=== PATIENT | female | born 1970 | race African-American/Black ===

== ENCOUNTER 2025-05-02 07:49 | Emergency (ER) | payer OTHER, SELFPAY ==
--- NOTE | ~2025-05-02 | CT_ITS ---
EXAMINATION: CT brain wo con DATE: 05/02/2025 12:57 INDICATION: Confusion TECHNIQUE: Computed tomography (CT) of the head was performed without intravenous contrast. Sagittal and coronal reconstructions were performed. The mA was adjusted according to patient size. Iterative reconstruction technique was employed. The dose-length product was 529.67 mGy-cm. COMPARISON: None FINDINGS: No fracture. No acute intracranial hemorrhage, acute infarction or abnormal extra axial fluid collection. Ventricles are normal and symmetric. No mass/mass effect. The orbits, paranasal sinuses and mastoid air cells are normal. IMPRESSION: 1. Normal head CT. Reviewed, dictated and finalized at location A. LEDGE MANAGER IMPRESSION: 1. Normal head CT.
--- NOTE | ~2025-05-02 | XR_ITS ---
Examination: XR hand LT min 3V, XR knee RT 3V, XR knee LT 3V, XR wrist LT min 3V Clinical History: trauma Comparison: None Technique: 3 views left wrist, 3 views left hand, 3 views left knee, 3 views right knee Findings/impression: Left wrist: 1. No fracture or dislocation left wrist. Left hand: 1. Probable degenerative osteophyte rather than avulsion fracture first finger MCP joint. 2. Otherwise no acute abnormality left hand. Left knee: 1. No fracture, dislocation, or effusion left knee. 2. Severe medial compartment joint space narrowing with mild associated marginal osteophytes. Right knee: 1. No fracture, dislocation, or effusion right knee. 2. Mild medial and lateral compartment joint space narrowing, with mild medial compartment marginal osteophytes. 3. Lucent focus proximal tibia with benign features. Reviewed, dictated and finalized at location R. P FEEDER
--- NOTE | ~2025-05-02 | XR_ITS ---
EXAMINATION: XR chest 2V DATE: 05/02/2025 13:09 INDICATION: Trauma TECHNIQUE: PA and lateral views of the chest were obtained. COMPARISON: None FINDINGS: The lungs are clear with no focal airspace opacities, pulmonary edema, pleural effusion or pneumothorax. The cardiomediastinal silhouette is normal. Mild to moderate thoracic spondylosis. IMPRESSION: 1. No acute cardiopulmonary disease. Reviewed, dictated and finalized at location A. 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
[2025-05-02 07:51] VITALS: BP 147/85; PULSE 79; RESP 16; TEMP 36.7; O2SAT 100
--- OUTSIDE RECORDS SUMMARY | 2025-05-02 11:49 | XMS_ITS | Clinical Summary ---
Author Organization [facility] Address [address] [place] [address] Care Team Providers Care Manager Commercial Sales Name Role Phone Johanny Wu MD Primary Care Provider [phone] Allergies Active Allergy Reactions Criticality Noted Date Comments Hydrocodone-Acetaminophen Palpitations,Sweating Low 12/10/2018 Medications tirzepatide (Mounjaro) 10 mg/0.5 mL pen injector injection Inject 0.5 mL (10 mg total) under the skin every 7 days 2 mL 6 12/07/2024 Active atenoloL (TENORMIN) 50 mg tablet TAKE 2 TABLETS BY MOUTH EVERY DAY 200 tablet 1 02/11/2025 Active amLODIPine (NORVASC) 10 mg tablet TAKE 1 TABLET BY MOUTH EVERY DAY 100 tablet 1 02/11/2025 Active hydroCHLOROthia zide (HYDRODIURIL) 25 mg tablet TAKE 1 TABLET (25 MG TOTAL) BY MOUTH DAILY. 100 tablet 1 02/11/2025 Active rosuvastatin (CRESTOR) 10 mg tablet Take 1 tablet (10 mg total) by mouth daily 30 tablet 11 04/18/2025 6 Active Active Problems Problem Noted Date Diagnosed Date Class 2 obesity due to exces s calories without serious comorbidity with body mass index (BMI) of 38.0 to 38.9 in adult 12/18/2024 Assessment & Plan (04/17/2025 2:00 PM APPLICATION SUPPORT CONSULTANT): Patient to decrease intake and increase activity Assessment & Plan (12/18/2024 8:52 AM CDT): Patient to decrease intake and increase activity Type 2 diabetes mellitus without complication Assessment & Plan (09/18/2024 7:12 AM CDT): Continue Mounjaro 7.5mg once a week Assessment & Plan (06/05/2024 8:03 AM APPLICATION SUPPORT CONSULTANT): Continue Mounjaro 2.5mg once a week Environmental and seasonal allergies 01/30/2024 Assessment & Plan (06/05/2024 8:05 AM APPLICATION SUPPORT CONSULTANT): Continue OTC Claritin as needed Assessment & Plan (01/30/2024 11:07 PM CDT): Continue to use OTC Claritin as needed Chronic left shoulder pain 01/30/2024 Assessment & Plan (01/30/2024 11:21 PM CDT): Will obtain X-ray of shoulder SOB (shortness of breath) 10/25/2023 Assessment & Plan (10/25/2023 7:32 PM CDT): Will check labs Well woman exam 12/15/2022 Overview (12/15/2022): Lab: Pap:all normal No recent labs. Libra:due in March Colonoscopy:she has the cologuard at her house BMD: Gardasil:did not 44 Assessment & Plan (05/25/2023 9:48 AM APPLICATION SUPPORT CONSULTANT): Due 12/2023 Assessment & Plan (12/15/2022 3:05 PM CDT): Pap done. RTO 12m. I will send the results to the portal. If she has not heard in a week, to call the office. Postmenopausal bleeding 12/15/2022 Assessment & Plan (06/05/2024 8:04 AM APPLICATION SUPPORT CONSULTANT): Patient to follow up with WIRE PHOTO OPERATOR Assessment & Plan (01/30/2024 10:57 PM CDT): Will have patient to follow up with WIRE PHOTO OPERATOR Assessment & Plan (10/25/2023 7:31 PM CDT): Follow up with WIRE PHOTO OPERATOR Assessment & Plan (05/25/2023 9:51 AM APPLICATION SUPPORT CONSULTANT): Options reviewed She will continue on the provera q 3m. If she continues to spot outside of the correct window, may need to do D&c or myosure. Assessment & Plan (02/22/2023 11:37 AM CDT): Options discussed She wants to do everything possible to avoid surgery. Will cycle her with provera at least q 3m. Use and side effects reviewed. She understands that we are doing this to try to prevent endometrial cancer, but since I can not get a sample, I dont know what is up there now. Assessment & Plan (12/15/2022 5:28 PM CDT): To usg We dicussed that she most likely will need an emb Procedure reviewed To take ibu prior. She voices understanding. Acute cough 03/02/2022 Assessment & Plan (03/02/2022 8:35 PM CDT): Patient to use OTC Mucinex as needed Morbid obesity with BMI of 40.0-44.9, adult 05/12 Assessment & Plan (09/18/2024 7:15 AM CDT): Patient to decrease intake and increase activity. Patient to continue Mounjaro 7.5mg once a week. Patient to continue Mounjaro 7.5mg once a week. Assessment & Plan (01/30/2024 10:55 PM CDT): Decrease intake and increase activity. Will have patient to see weight management Assessment & Plan (10/25/2023 7:29 PM CDT): Decrease intake and increase activity Assessment & Plan (05/16/2023 11:20 AM APPLICATION SUPPORT CONSULTANT): Decrease intake and increase activity Assessment & Plan (01/08/2023 9:15 PM CDT): Decrease intake and increase activity Assessment & Plan (08/27/2022 9:46 PM CDT): Decrease intake and increase activity Assessment & Plan (03/02/2022 8:36 PM CDT): Decrease intake and increase activity Assessment & Plan (10/06/2021 8:52 PM CDT): Decrease intake and increase activity Assessment & Plan (06/01/2021 3:09 PM APPLICATION SUPPORT CONSULTANT): Decrease intake and increase activity Acute medial meniscus tear of right knee 021 Primary osteoarthritis of right knee 09/25/2020 Assessment & Plan (10/25/2023 7:34 PM CDT): Recommend for patient to continue home exercises. Hypersomnia with sleep apnea 02/06/2020 Encounter for screening colonoscopy 02/21/2019 Overview (02/21/2019): Added automatically from request for surgery [id number] Essential hypertension 02/11/2019 Assessment & Plan (09/18/2024 7:10 AM CDT): Patient to continue Amlodipine 10mg a day, HCTZ 25mg one tablet a dayy and Atenolol 50mg one tablet a day Assessment & Plan (06/05/2024 8:00 AM APPLICATION SUPPORT CONSULTANT): Continue Amlodipine 10mg a day, HCTZ 25mg one tablet a dayy and Atenolol 50mg one tablet a day Assessment & Plan (01/30/2024 10:51 PM CDT): Continue Amlodipine 10mg a day, HCTZ 25mg one tablet a dayy and Atenolol 50mg one tablet a day Assessment & Plan (10/25/2023 7:27 PM CDT): Continue Amlodipine 10mg a day, HCTZ 25mg a day and Atenolol 50mg once a day Assessment & Plan (05/16/2023 11:22 AM APPLICATION SUPPORT CONSULTANT): Continue Amlodipine 10mg a day and Atenolol 50mg a day Assessment & Plan (01/08/2023 9:17 PM CDT): Continue HCTZ 25mg a day, Atenolol 50mg a day and Amlodipine 10mg a day Assessment & Plan (08/27/2022 9:48 PM CDT): Continue HCTZ 25mg a day and Amlodipine 10mg a day Assessment & Plan (03/02/2022 8:31 PM CDT): Continue HCTZ 25mg a day and Atenolol 50mg a day Assessment & Plan (10/06/2021 8:56 PM CDT): Continue Amlodipine 10mg a day and Atenolol 50mg a day Assessment & Plan (06/01/2021 3:13 PM APPLICATION SUPPORT CONSULTANT): Continue Amlodipine 5mg a day, Atenolol 50mg a day and HCTZ 25mg a day Assessment & Plan (06/14/2020 4:19 PM APPLICATION SUPPORT CONSULTANT): BP today is 140/88. Continue atenolol 50 mg daily, HCTZ 25 mg daily. Patient to start amlodipine 5 mg daily for better control of HTN. Encourage low-sodium diet and regular exercise. Will monitor. Assessment & Plan (07/19/2019 3:54 PM CDT): BP today 170/94; repeat at exam 140/90. Continue Atenolol from 50 mg BID daily. Start HCTZ 25 mg mg daily. Return for CMP 1 week after starting medication to check electrolytes. Will monitor. Encourage low-sodium diet and regular exercise. Will monitor. Assessment & Plan (05/20/2019 2:45 PM APPLICATION SUPPORT CONSULTANT): BP today at exam 160/100. Discontinue Losartan to 100 mg every day; start Atenolol 50 mg daily. Encourage low-sodium diet and regular exercise. Will monitor. Assessment & Plan (02/11/2019 2:58 PM CDT): BP today 124/86; will increase patient's Losartan to 100 mg QD. Encourage low- sodium diet and regular exercise. Will monitor. Localized edema 02/11/2019 Assessment & Plan (07/19/2019 3:21 PM CDT): Patient has been stable. Continue current treatment with compression, elevation, and limiting sodium intake. Will continue to monitor Assessment & Plan (05/20/2019 1:49 PM APPLICATION SUPPORT CONSULTANT): Patient has been stable. Continue current treatment with compression, elevation, and limiting sodium intake. Will continue to monitor Assessment & Plan (02/11/2019 2:50 PM CDT): Patient denies any leg swelling. Will continue to monitor. Prediabetes 02/11/2019 Assessment & Plan (01/30/2024 10:55 PM CDT): Decrease intake of pasta, potatoes, breads, rice and sweets Assessment & Plan (10/25/2023 7:28 PM CDT): Decrease intake of pasta, potatoes, breads, rice and sweets Assessment & Plan (05/16/2023 11:36 AM APPLICATION SUPPORT CONSULTANT): Decrease intake of pasta, potatoes, breads, rice and sweets Assessment & Plan (01/08/2023 9:20 PM CDT): Decrease intake of pasta, potatoes, breads, rice and sweets Assessment & Plan (08/27/2022 9:50 PM CDT): HGA1C 6.0. Decrease intake of pasta, potatoes, breads, rice and sweets Assessment & Plan (03/02/2022 8:32 PM CDT): Decrease intake of pasta, potatoes, breads, rice and sweets Assessment & Plan (10/06/2021 8:52 PM CDT): Decrease intake of pasta, potatoes, breads, rice and sweets Assessment & Plan (06/01/2021 3:11 PM APPLICATION SUPPORT CONSULTANT): HGA1C is 5.8. Decrease intake of pasta, potatoes, breads, rice and sweets Assessment & Plan (06/13/2020 5:24 PM APPLICATION SUPPORT CONSULTANT): Last A1c of 6.1% on 07/26/2019. Encouraged healthy lifestyle changes to prevent developing DM. Will monitor. Assessment & Plan (07/19/2019 3:19 PM CDT): Last A1c 6.0% on 05/21/2019. Encouraged healthy lifestyle changes to prevent developing DM. Will monitor. Assessment & Plan (05/20/2019 1:48 PM APPLICATION SUPPORT CONSULTANT): Will reorder hemoglobin A1c. Encouraged healthy lifestyle changes to prevent developing DM. Will monitor. Assessment & Plan (02/11/2019 10:33 AM CDT): Pending A1c order to be completed. Encouraged healthy lifestyle changes to prevent developing DM. Will monitor. MVP (mitral valve prolapse) 02/11/2019 Assessment & Plan (05/20/2019 1:49 PM APPLICATION SUPPORT CONSULTANT): Will continue to monitor. Assessment & Plan (02/11/2019 10:32 AM CDT): Will continue to monitor. BMI 40.0-44.9, adult 02/11/2019 Assessment & Plan (09/18/2024 7:08 AM CDT): Patient to decrease intake and increase activity Assessment & Plan (01/30/2024 10:49 PM CDT): Decrease intake and increase activity Assessment & Plan (10/25/2023 7:29 PM CDT): Patient to start Zepbound 2.5mg once a week Assessment & Plan (05/16/2023 11:20 AM APPLICATION SUPPORT CONSULTANT): Decrease intake and increase activity Assessment & Plan (01/08/2023 9:14 PM CDT): Decrease intake and increase activity Assessment & Plan (08/27/2022 9:46 PM CDT): Decrease intake and increase activity Assessment & Plan (03/02/2022 8:30 PM CDT): Decrease intake and increase activity Assessment & Plan (10/06/2021 8:51 PM CDT): Continue to decrease intake and increase activity Assessment & Plan (06/01/2021 3:07 PM APPLICATION SUPPORT CONSULTANT): Decrease intake and increase activity Assessment & Plan (08/28/2020 3:33 PM CDT): BMI Follow-up includes: education provided. Assessment & Plan (06/14/2020 4:24 PM APPLICATION SUPPORT CONSULTANT): Body mass index is 47.69 kg/m . Patient lost 3 lbs from the last visit. Patient was encouraged to change her diet - cut out fried foods from diet and limit sweets to once a week. Patient was advised to control portion sizes and decrease snacking. Patient instructed to lose 5 lbs by next visit. Will monitor. Assessment & Plan (07/19/2019 3:21 PM CDT): Body mass index is 47.26 kg/m . Patient has maintained weight since last visit in in 05/2019. Encouraged weight loss with healthy dietary choices, regular exercise, drinking plenty of water, and getting adequate rest. Will monitor. Assessment & Plan (05/20/2019 2:46 PM APPLICATION SUPPORT CONSULTANT): Body mass index is 47.36 kg/m . today. Patient has lost 3 lbs since last visit. Set weight loss goal of being before 280 lbs at next JOSE. Encouraged weight loss with healthy dietary choices, regular exercise, drinking plenty of water, and getting adequate rest. Will monitor. Assessment & Plan (02/11/2019 2:59 PM CDT): Body mass index is 47.76 kg/m . today. Encouraged weight loss with healthy dietary choices, regular exercise, drinking plenty of water, and getting adequate rest. Will monitor. TRANG (obstructive sleep apnea) 02/11/2019 Assessment & Plan (09/18/2024 7:11 AM CDT): Patient to continue follow up with sleep medicine. Assessment & Plan (06/05/2024 8:01 AM APPLICATION SUPPORT CONSULTANT): Follow up with sleep medicine Assessment & Plan (01/30/2024 10:52 PM CDT): Follow up with sleep medicine Assessment & Plan (10/25/2023 7:26 PM CDT): Follow up with sleep medicine Assessment & Plan (05/16/2023 11:23 AM APPLICATION SUPPORT CONSULTANT): Continue follow up with sleep medicine Assessment & Plan (01/08/2023 9:18 PM CDT): Follow up with with sleep medicine. Assessment & Plan (08/27/2022 9:48 PM CDT): Follow up with sleep medicine Assessment & Plan (03/02/2022 8:32 PM CDT): Patient to obtain CPAP supplies Assessment & Plan (10/06/2021 8:54 PM CDT): Follow up with sleep medicine Assessment & Plan (06/01/2021 3:12 PM APPLICATION SUPPORT CONSULTANT): Patient to call company about getting supplies Assessment & Plan (06/13/2020 5:24 PM APPLICATION SUPPORT CONSULTANT): Continue use of nightly CPAP. Continue to follow with Dr. Merchant, sleep specialist, for surveillance and management. Notify for any worsening symptoms or fatigue. Will monitor. Assessment & Plan (07/19/2019 3:20 PM CDT): Patient's previous sleep study in 01/2019 showed evidence of TRANG. Baseline oxygenation was 95%. She did drop to 75% at one point during the night. The longest time she spent in a hypoxic state was 24 minutes, where she was at 88%. She now needs to have a titration done to be able to set her up with a CPAP. Will refer her to Dr. Merchant for this and further management of her TRANG. Will refer to sleep center for CPAP titration. Assessment & Plan (05/20/2019 2:43 PM APPLICATION SUPPORT CONSULTANT): Patient's sleep study showed evidence of TRANG. Baseline oxygenation was 95%. She did drop to 75% at one point during the night. The longest time she spent in a hypoxic state was 24 minutes, where she was at 88%. She now needs to have a titration done to be able to set her up with a CPAP. Will refer her to Dr. Merchant for this and further management of her TRANG. Will refer to sleep center for CPAP titration. Assessment & Plan (02/11/2019 2:47 PM CDT): Patient's sleep study showed evidence of TRANG. Baseline oxygenation was 95%. She did drop to 75% at one point during the night. The longest time she spent in a hypoxic state was 24 minutes, where she was at 88%. She now needs to have a titration done to be able to set her up with a CPAP. Will refer her to Dr. Merchant for this and further management of her TRANG. Colon cancer screening 02/11/2019 Assessment & Plan (02/11/2019 2:56 PM CDT): Patient has not had a colonoscopy; will refer her to GI at [facility] to have one done for prophylaxis Encounter for immunization 02/11/2019 Assessment & Plan (02/11/2019 2:57 PM CDT): Patient received flu vaccine today Routine medical exam 02/11/2019 Assessment & Plan (02/11/2019 3:18 PM CDT): Discussed age appropriate safety precautions. Recommended a well balanced diet and exercise. Encounters Date Type Department Care Team Description 04/18/2025 Results Follow-Up [facility] - [address] [place], [place] [phone] Johanny Wu MD Urinalysis reflex to microscopic and culture Urine, clean voided, TSH, CBC with auto differential, Additional followed-up results: 5 04/17/2025 2:35 PM APPLICATION SUPPORT CONSULTANT Lab [address] [id number] Type 2 diabetes mellitus without complication, without long-term current use of insulin ([facility]) 04/17/2025 2:00 PM APPLICATION SUPPORT CONSULTANT Office Visit [facility] - [address] [place] [phone] Johanny Wu MD Class 2 obesity due to excess calories without serious comorbidity with body mass index (BMI) of 38.0 to 38.9 in adult (Primary Dx); Essential hypertension from Last 3 Months Immunizations Immunization Administration Dates Next Due Influenza, Quadrivalent, Spl it, Preservative Free, Intramuscular 02/11/2019 Influenza, Unspecified 04/17/2025(Deferr ed: Patient Refused),09/01/2024(Deferred: Patient Refused),05/14/2023(Deferred: Patient Refused) Tdap 12/10/2018 Surgical History Surgery Date Site/Laterality Comments TUBAL LIGATION ABLATION 05/11/2015 - 05/10/2016 Endometrial ablation for heavy menses at [facility]. BREAST BIOPSY Right benign Medical History Medical History Date Comments Hypertension Obesity Family History Medical History Relation Name Comments Hypertension Brother Heart attack Father cause of brain tumo Mother brain tumor Uterine cancer Sister uterine Cause of Breast cancer Neg Hx Cancer Neg Hx no colon or carie ast cmt 12/15/22 Endometrial cancer Neg Hx Ovarian cancer Neg Hx Pancreatic cancer Neg Hx Prostate cancer Neg Hx Relation Name Status Comments Brother Alive Father Mother Sister Social History Tobacco Use Types Packs/Day Years Used Date Smoking Tobacco: Never Smokeless Tobacco: Never Tobacco Cessation:Counseling Given: Not Answered Humiliation, Afraid, Rape, and Kick questionnair e Answer Date Recorded Within the last year, have y ou been afraid of your partner or ex-partner? No 12/15/2022 Within the last year, have y ou been humiliated or emotionally abused in other ways by your partner or ex-partner? No Within the last year, have y ou been kicked, hit, slapped, or otherwise physically hurt by your partner or ex-partner? No 12/15/2022 Within the last year, have y ou been raped or forced to have any kind of sexual activity by your partner or ex-partner? No 12/15/2022 AUDIT-C Answer Date Recorded Q1: How often do you have a drink containing alc ohol? Monthly or less 12/15/2022 Q2: How many drinks containi ng alcohol do you have on a typical day when you are drinking? 1 or 2 12/15/2022 Q3: How often do you have si x or more drinks on one occasion? 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 Last Filed Vital Signs Vital Sign Reading Time Taken Comments Blood Pressure 120/72 04/17/2025 2:00 PM APPLICATION SUPPORT CONSULTANT Pulse 77 04/17/2025 2:00 PM APPLICATION SUPPORT CONSULTANT Temperature 36.1 C (96.9 F) 04/17/2025 2:00 PM APPLICATION SUPPORT CONSULTANT Respiratory Rate 13 04/17/2025 2:00 PM APPLICATION SUPPORT CONSULTANT Oxygen Saturation 98% 04/17/2025 2:00 PM APPLICATION SUPPORT CONSULTANT Inhaled Oxygen Concentration - - Weight 110.3 kg (243 lb 3.2 oz) 04/17/2025 2:00 PM APPLICATION SUPPORT CONSULTANT Height 175.3 cm (5' 9) 04/17/2025 2:00 PM APPLICATION SUPPORT CONSULTANT Body Mass Index 35.91 04/17/2025 2:00 PM APPLICATION SUPPORT CONSULTANT Plan of Treatment Health Maintenance Due Date Last Done Comments Albumin Creatinine Ratio, Urine 1969 Colon Cancer Screening-Colonoscopy 1969 Dilated Eye Exam 1969 Hepatitis B Screening 1987 Pneumococcal vaccine <65 (1 of 2 - PCV) 01/12/1988 Zoster Vaccine (1 of 2) 2019 Cervical Cancer Screening 12/16/20232022, 02/11/2018, 02/09/2018 Regular Well Visit/Exam 18-64 10/14/2024, 12/15/2022, 11/16/2019, Additional history exists Influenza Vaccine (#1) 2025 02/11/2019 Breast Cancer Screening-Mammogram 06/11/2025 06/11/2024, 03/15/2022, 03/05/2021, Additional history exists Foot Exam 09/01/2025 09/01/2024 Hemoglobin A1C 10/16/2025 04/17/2025, 07/06/2024, 05/26/2024, Additional history exists Depression Screening 04/17/2026 04/17/2025, 12/15/2024, 05/26/2024, Additional history exists Lipid Panel 04/17/2026 04/17/2025, 01/09, 01/04/2022, Additional history exists eGFR 04/17/2026 04/17/2025, 11/08, 01/23/2024, Additional history exists DTaP/Tdap/Td Vaccine (2 - Td or Tdap) 12/10/2028 12/10/2018 Hepatitis C Screening Completed 01/23/2024 Procedures Procedure Name Priority Date/Time Associated Diagnosis Comments EGFR Routine 04/17/2025 2:39 PM APPLICATION SUPPORT CONSULTANT Type 2 diabetes mellitus without complication, without long-term current use of insulin (HCC) DIFFERENTIAL AUTO Routine 04/17/2025 2:3 9 PM APPLICATION SUPPORT CONSULTANT Type 2 diabetes mellitus without complication, without long-term current use of insulin (HCC) LIPID PANEL Routine 04/17/2025 2:39 PM APPLICATION SUPPORT CONSULTANT Type 2 diabetes mellitus without complication, without long-term current use of insulin (HCC) HEMOGLOBIN A1C Routine 04/17/2025 2:39 PM APPLICATION SUPPORT CONSULTANT Type 2 diabetes mellitus without complication, without long-term current use of insulin (HCC) COMPREHENSIVE METABOLIC PANEL Routine 04/17/2025 2:39 PM APPLICATION SUPPORT CONSULTANT Type 2 diabetes mellitus without complication, without long-term current use of insulin (HCC) CBC WITH AUTO DIFFERENTIAL Routine 04/17/2025 2:39 PM APPLICATION SUPPORT CONSULTANT Type 2 diabetes mellitus without complication, without long-term current use of insulin (HCC) TSH Routine 04/17/2025 2:39 PM APPLICATION SUPPORT CONSULTANT Type 2 diabetes mellitus without complication, without long-term current use of insulin (HCC) URINALYSIS AND REFLEX TO MICROSCOPIC AND CULTURE Routine 04/17/2025 1:53 PM APPLICATION SUPPORT CONSULTANT Type 2 diabetes mellitus without complication, without long-term current use of insulin (HCC) SCREENING MAMMOGRAM BILATERAL W CONRAD Schedule Routine, Read Routine (OP Routine) 06/11/2024 10:14 AM APPLICATION SUPPORT CONSULTANT Encounter for screening mammogram for malignant neoplasm of breast HEPATITIS C ANTIBODY Routine 01/23/2024 10:35 AM CDT Prediabetes PAP AND HPV, REFLEX TO HPV GENOTYPES Routine 12/15/2022 3:33 PM CDT Well woman exam from Last 3 Months or Most Recently Relevant to Health Maintenance Results * eGFR (04/17/2025 2:39 PM APPLICATION SUPPORT CONSULTANT) eGFR 86 >=60 mL/min/1. 73 m2 Comment: Interpretive Data Reference Interval Normal >/= 90 mL/min/1.73m2 Mildly decreased* 60 - 89 mL/min/1.73m2 Mildly to moderately decreased 45 - 59 mL/min/1.73m2 Moderately to severely decreased 30 - 44 mL/min/1.73m2 Severely decreased 15 - 29 mL/min/1.73m2 Kidney Failure < 15 mL/min/1.73m2 *Relative to young adult level Estimated glomerular filtration rate is determined by the 2020 CKD-EPI equation recommended by the National Kid[employer] Foundation (A Unifying Approach to GFR Estimation: Recommendations of the NKF-ASK Task Force on Reassessing the Inclusion of Race in Diagnosing Kidney Disease, JASN 2020). The CKD-EPI equation should not be used for patients with unstable renal function and has not been validated in children and those over 70. Current interpretive data was last reviewed 2021. Testing performed by: [facility] [address], [place] [address] Blood 04/17/2025 2:39 PM APPLICATION SUPPORT CONSULTANT 04/17/2025 3:07 PM APPLICATION SUPPORT CONSULTANT us Johanny Wu MD LAB BLOOD ORDERABLES Final Result [facility] [id number] Department [place] [address] * Differential, auto (04/17/2025 2:39 PM APPLICATION SUPPORT CONSULTANT) Neutrophil abs 4.77 1.50 - 6.50 K/cumm Comment:Testing performed by : [facility] [address], [place] [address] Imm gran abs 0.01 0.00 - 0.10 K/cumm CERNER CH Comment:Testing performed by : [facility], [facility] [address], [place] [address] Lymphocyte abs 3.17 0.80 - 3.30 K/cumm CERNER CH Comment:Testing performed by : [address], [place] [address] Monocyte abs 0.34 0.20 - 0.80 K/cumm CERNER CH Comment:Testing performed by : 08 [address], [place] [address] Eosinophil abs 0.11 0.00 - 0.50 K/cumm CERNER CH Comment:Testing performed by : [facility] [address], [place] [address] Basophil abs 0.04 0.00 - 0.10 K/cumm CERNER CH Comment:Testing performed by : [address], [place] [address] Neutrophil pct 56.5 % CERNER CH Comment: Interpretive Data Percent cell count reference ranges are not reported, since discordance with absolute values may lead to misinterpretation of CBC data. Current Interpretive Data was last revised on 2017. Testing performed by: [facility] [address], [place] [address] Imm gran pct 0.1 % CERNER CH Comment: Interpretive Data Percent cell count reference ranges are not reported, since discordance with absolute values may lead to misinterpretation of CBC data. Current Interpretive Data was last revised on 2017. Testing performed by: [address], [place] [address] Lymphocyte pct 37.6 % CERNER CH Comment: Interpretive Data Percent cell count reference ranges are not reported, since discordance with absolute values may lead to misinterpretation of CBC data. Current Interpretive Data was last revised on 2017. Testing performed by: [facility], [address] [place] [address] Mo, [place] [address] Monocyte pct 4.0 % CERNER CH Comment: Interpretive Data Percent cell count reference ranges are not reported, since discordance with absolute values may lead to misinterpretation of CBC data. Current Interpretive Data was last revised on 2017. Testing performed by: [address], [place] [address] Eosinophil pct 1.3 % [facility] Comment: Interpretive Data Percent cell count reference ranges are not reported, since discordance with absolute values may lead to misinterpretation of CBC data. Current Interpretive Data was last revised on 2017. Testing performed by: [address], [place] [address] Basophil pct 0.5 % CERNER Comment: Interpretive Data Percent cell count reference ranges are not reported, since discordance with absolute values may lead to misinterpretation of CBC data. Current Interpretive Data was last revised on 2017. Testing performed by: [address], [place] [address] Blood 04/17/2025 2:39 PM APPLICATION SUPPORT CONSULTANT 04/17/2025 3:07 PM APPLICATION SUPPORT CONSULTANT Johanny Wu MD LAB BLOOD ORDERABLES Final Result [facility] [address] [address] Department of Laboratories [place], [place] [id number] * CBC with auto differential (04/17/2025 2:39 PM APPLICATION SUPPORT CONSULTANT) WBC 8.44 3.80 - 9.90 K/cumm Comment:Testing performed by : [address], [place] [address] Hgb 13.0 11.9 - 15.5 g/dL DORCAS Comment:Testing performed by : [address], [place] [address] Hct 38.7 35.6 - 45.5 % ARABELLANER Comment:Testing performed by : [address], [place] [address] Plt 274 150 - 400 K/cumm DORCAS Comment:Testing performed by : [address], [place] [address] MPV 10.9 9.1 - 12.3 fL DORCAS Comment:Testing performed by : [address], [place] [address] RBC 4.26 3.90 - 5.20 M/cumm CERNER Comment:Testing performed by : [facility] [place] [address] MCV 90.8 81.3 - 96.4 fL CERNER Comment:Testing performed by : [facility], [address], [place] [address] MCH 30.5 27.1 - 33.3 pg CERNER CH Comment:Testing performed by : [facility], [address] [place] [address] MCHC 33.6 32.3 - 35.7 g/dL CERNER Comment:Testing performed by [facility] [address] [place] [address] RDW CV 13.3 11.1 - 14.9 % CERNER Comment:Testing performed by [facility] [address] [place] [address] RDW SD 44.7 35.7 - 48.1 fL CERNER Comment:Testing performed by : [facility] [place] [address] NRBC abs 0.00 0.00 - 0.01 K/cumm CERNER Comment:Testing performed by : [facility] [place] [address] Blood 04/17/2025 2:39 PM APPLICATION SUPPORT CONSULTANT 04/17/2025 3:07 PM APPLICATION SUPPORT CONSULTANT Johanny Wu MD LAB BLOOD ORDERABLES Final Result Performing Organization Address City/[facility] Phone Number [facility] [address] [address] Department of Laboratories [place], [place] [id number] * TSH (04/17/2025 2:39 PM APPLICATION SUPPORT CONSULTANT) Thyroid Stimulating Hormone 1.35 0.30 - 4.20 mcIUnit/mL Comment:Testing performed by : [facility] [place] [address] Blood 04/17/2025 2:39 PM APPLICATION SUPPORT CONSULTANT 04/17/2025 3:07 PM APPLICATION SUPPORT CONSULTANT Johanny Wu MD LAB BLOOD ORDERABLES Final Result Performing Organization Address City/State/[facility] de Phone Number DORCAS [address] [address] [place] [address] * (ABNORMAL) Hemoglobin A1c (04/17/2025 2:39 PM APPLICATION SUPPORT CONSULTANT) Hgb A1C 5.7(H) 4.0 - 5.6 % Estimated Average Glucose 117 mg/dL DORCAS MONTES Comment: The ADA recommends reporting an estimated Average Glucose (eAG) with all Hemoglobin A1c results using the equation derived from a study of 507 normal and diabetic adults. Minority populations were underrepresented and children were not included. (Diabetes Care 31:9544-5558, 2008). The eAG is not equivalent to a fasting glucose. Blood 04/17/2025 2:39 PM APPLICATION SUPPORT CONSULTANT 04/17/2025 5:19 PM APPLICATION SUPPORT CONSULTANT Johanny Wu MD LAB BLOOD ORDERABLES Final Result Performing Organization Address [facility] de Phone Number ARABELLAPAT [address] [address] Department [place] [address] * (ABNORMAL) Lipid panel (04/17/2025 2:39 PM APPLICATION SUPPORT CONSULTANT) Pathologist [facility] Cholesterol 196 30 - 199 mg/dL Comment: Interpretive Data Ages < or = 19 years Acceptable: <170 mg/dL Borderline high: 170-199 mg/dL High: >or= 200 mg/dL Ages > or = 20 years Desirable: <200 mg/dL Borderline high: 200-239 mg/dL High: >or= 240 mg/dL Literature References: 1. Expert Panel on Integrated Guidelines for Cardiovascular Health and Risk Reduction in Children and Adolescents. Pediatrics 2011;128:S213 2. NCEP Expert Panel. Circulation 2004;110:227 Current Interpretive Data was last revised on 2017. Testing performed by: [facility], [address], [place] [address] Triglycerides 90 <=149 mg/dL DORCAS MONTES Comment: Interpretive Data Ages < or = 9 years Acceptable: <75 mg/dL Borderline high: 75-99 mg/dL High: >or= 100 mg/dL Ages 10 to 20 years Acceptable: <90 mg/dL Borderline high: 90-129 mg/dL High: >or= 130 mg/dL Ages > or = 20 years Desirable: <150 mg/dL Borderline high: 150-199 mg/dL High: 200-499 mg/dL Very high: >or= 499 mg/dL Literature References: 1. Expert Panel on Integrated Guidelines for Cardiovascular Health and Risk Reduction in Children and Adolescents. Pediatrics 2011;128:S213 2. NCEP Expert Panel. Circulation 2004;110:227 Current Interpretive Data was last revised on 2017. Testing performed by: [facility], [address], [place] [address] HDL 50 >=40 mg/dL DORCAS Comment: Interpretive Data Ages < or = 19 years Acceptable: >45 mg/dL Borderline low: 40-45 mg/dL Low: <40 mg/dL Ages > or = 20 years Desirable: >or= 60 mg/dL Low: <40 mg/dL Literature References: 1. Expert Panel on Integrated Guidelines for Cardiovascular Health and Risk Reduction in Children and Adolescents. Pediatrics 2011;128:S213 2. NCEP Expert Panel. Circulation 2004;110:227 Current Interpretive Data was last revised on 2017. Testing performed by: [facility], [address], [place], [place] [address] LDL, calculated 130(H) <=129 mg/dL DORCAS Comment: Interpretive Data Ages < or = 19 years Acceptable: <110 mg/dL Borderline high: 110-129 mg/dL High: >or= 130 mg/dL Ages > or = 20 years Optimal: <100 mg/dL Near optimal: 100-129 mg/dL Borderline high: 130-159 mg/dL High: >160 mg/dL Calculated using the Adeel LDL-C estimating equation. This equation was implemented on 2023. Prior to this date LDL-C was estimated using the Friedewald equation. Literature References: 1. Expert Panel on Integrated Guidelines for Cardiovascular Health and Risk Reduction in Children and Adolescents. Pediatrics 2011;128:S213 2. NCEP Expert Panel. Circulation 2004;110:227 3. Adeel Ivy al. WON Cardiol. 2020 September 08;5(5):540-548. doi: 10.1001/[email or web address] Current Interpretive Data was last revised on 2023. Testing performed by: [address], [place] [address] Non-HDL Cholesterol 146 mg/dL CERNER CH Comment: Interpretive Data Ages < or = 19 years Acceptable: <120 mg/dL Borderline high: 120-144 mg/dL High: >145 mg/dL Ages > or = 20 years When triglycerides are >200 mg/dL, Non-HDL cholesterol is a secondary target of therapy with treatment goals that are 30 mg/dL greater than the LDL cholesterol target. Literature References: 1. Expert Panel on Integrated Guidelines for Cardiovascular Health and Risk Reduction in Children and Adolescents. Pediatrics 2011;128:S213 2. NCEP Expert Panel. Circulation 2004;110:227 Current Interpretive Data was last revised on 2017. Testing performed by: [place] [address], [place] [address] Chol/HDL ratio 4 CERNER CH Comment:Testing performed by : [place] [facility] [address], [place] [address] Blood 04/17/2025 2:39 PM APPLICATION SUPPORT CONSULTANT 04/17/2025 3:07 PM APPLICATION SUPPORT CONSULTANT Johanny Wu MD LAB BLOOD ORDERABLES Final Result [facility] [address] [address] Department of Laboratories [place], [place] [id number] * Comprehensive metabolic panel (04/17/2025 2:39 PM APPLICATION SUPPORT CONSULTANT) Sodium 140 135 - 145 mmol/L Comment:Testing performed by : [address], [place] [address] Potassium, pl 3.6 3.3 - 4.9 mmol/L CERNER CH Comment:Testing performed by : [address], [place] [address] Chloride 101 97 - 110 mmol/L CERNER CH Comment:Testing performed by : [address], [place] [address] CO2 28 22 - 32 mmol/L CERNER CH Comment:Testing performed by : [address], [place] [address] Anion gap 11 2 - 15 mmol/L CERNER CH Comment:Testing performed by : [address], [place] [address] BUN 13 6 - 25 mg/dL CERNER CH Comment:Testing performed by : [address], [place] [address] Creatinine 0.80 0.60 - 1.10 mg/dL CERNER CH Comment:Testing performed by : [facility] [place] [address] Glucose 94 70 - 199 mg/dL CERNER CH Comment: Interpretive Data Fasting glucose >/= 126 mg/dl is diagnostic for diabetes. Fasting is defined as no caloric intake for at least 8 hours. Fasting glucose between 100 mg/dl to 125 mg/dl is diagnostic of prediabetes. In a patient with classic symptoms of hyperglycemia or hyperglycemic crisis, a random glucose >/= 200 mg/dl is diagnostic for diabetes. In the absence of unequivocal hyperglycemia, results should be confirmed by repeat testing. The classification and Diagnosis of Diabetes Diabetes Care 202; 46: S19-S40. Current interpretive data was last revised 2022. Testing performed by: [facility] [place] [address] Calcium 10.0 8.5 - 10.3 mg/dL CERNER CH Comment:Testing performed by : [facility] [place] [address] Bilirubin, total 0.3 0.1 - 1.2 mg/dL CERNER CH Comment:Testing performed by : [address], [place] [address] Protein, pl 7.8 6.5 - 8.5 g/dL CERNER CH Comment:Testing performed by : [address], [place] [address] Albumin 4.4 3.5 - 5.0 g/dL CERNER CH Comment:Testing performed by : [address], [place] [address] Alk phos 97 40 - 130 Units/L CERNER CH Comment:Testing performed by : [address], [place] [address] ALT 16 7 - 45 Units/L CERNER CH Comment:Testing performed by : [address], [place] [address] AST 18 10 - 45 Units/L CERNER CH Comment:Testing performed by : [address], [place] [address] Blood 04/17/2025 2:39 PM APPLICATION SUPPORT CONSULTANT 04/17/2025 3:07 PM APPLICATION SUPPORT CONSULTANT Johanny Wu MD LAB BLOOD ORDERABLES Final Result [facility] [address] [address] Department [place] [address] * Urinalysis reflex to microscopic and culture Urine, clean voided (04/17/2025 1:53 PM APPLICATION SUPPORT CONSULTANT) Color, ur Yellow Yellow Comment:Testing performed by : [address], [place] [address] Clarity, ur Clear Clear CERNER CH Comment:Testing performed by : [address], [place] [address] Specific gravity, ur 1.016 1.003 - 1.030 CERNER Comment:Testing performed by : [address], [place] [address] pH, urine 6.5 CERNER Comment: Interpretive Data U rine pH is affected by diet, medications, systemic acid-base disturbances, and renal tubular function. pH may affect urinary stone formation. For example, urine pH below 6.0 may help reduce the tendency for calcium phosphate stones and pH greater than 6.0 may reduce the tendency for uric acid stone formation. Source: [facility] Current Interpretive Data was last revised on 2017 Testing performed by: [address], [place] [address] Protein, ur ql Negative Negative CERNER CH Comment:Testing performed by : [address], [place] [address] Glucose, ur ql Negative Negative CERNER CH Comment:Testing performed by : [address], [place] [address] Ketones, ur Negative Negative CERNER CH Comment:Testing performed by : [address], [place] [address] Bilirubin, ur Negative Negative CERNER CH Comment:Testing performed by : [address], [place] [address] Blood, ur Negative Negative CERNER CH Comment:Testing performed by : [address], [place] [address] Urobilinogen, ur <2.0 <2.0 mg/dL DORCAS MONTES Comment:Testing performed by : [facility], [address] [place] [place] [address] Nitrite, ur Negative Negative DORCAS MONETS Comment:Testing performed by : [facility], [address], [place] [address] Leukocyte esterase, ur Negative Negative DORCAS MONTES Comment:Testing performed by : [facility], [address] [place] [address] UA reflex comment Reflex conditions for microscopic UA and culture not met. DORCAS MONTES Comment:Testing performed by : [facility], [address] [place] [address] Urine, clean voided 04/17/2025 1:53 PM APPLICATION SUPPORT CONSULTANT 04/17/2025 3:22 PM APPLICATION SUPPORT CONSULTANT Johanny Wu MD LAB MICROBIOLOGY - GENERAL ORDERABLES Final Result Performing Organization Address City/State/[facility] Co de Phone Number DORCAS [address] [address] Department [place] [address] * (ABNORMAL) Screening Mammogram Bilateral W Conrad (06/11/2024 10:14 AM APPLICATION SUPPORT CONSULTANT) Anatomical Region Laterality Modality Breast Bilateral Mammography 06/13/2024 8:42 AM APPLICATION SUPPORT CONSULTANT Impressions 06/13/2024 8:42 AM APPLICATION SUPPORT CONSULTANT Right breast focal asymmetry. FINAL ASSESSMENT: BI-RADS Category 0: Incomplete - Need Additional Imaging Evaluation. RECOMMENDATION: Findings in the right breast require additional evaluation. Diagnostic mammogram and possible ultrasound images of the right breast are recommended at this time. Electronically signed by: Jesse Benjamin II, D.O. Narrative 06/13/2024 8:42 AM APPLICATION SUPPORT CONSULTANT EXAMINATION: BILATERAL SCREENING MAMMOGRAM COMPARISON: All prior mammograms dating back to 2019. TECHNIQUE: Full-field 2D and digital breast tomosynthesis (DBT) images were obtained. CAD was utilized. BREAST PARENCHYMAL COMPOSITION: There are scattered areas of fibroglandular density. FINDINGS: There is no suspicious mass, calcification, or distortion in left breast. There is a right breast upper outer quadrant focal asymmetry approximately 9 to 11 cm from the nipple, best visualized on the cc projection. No suspicious microcalcifications in the right breast. Johanny Wu MD IMG MAMMO PROCEDURES Final Result * Hepatitis C antibody Blood (01/23/2024 10:35 AM CDT) Hep C Ab Nonreactive Nonreactive Comment: Interpretive Data Nonreactive: Antibodies to HCV not detected. Does NOT exclude the possibility of recent exposure to HCV. Equivocal: Equivocal for HCV antibodies. Supplemental molecular testing will be automatically performed to determine infection status in accordance with current CDC screening recommendations. Reactive: Positive for HCV antibodies. This may represent current or past HCV infection. Supplemental molecular testing will be automatically performed to determine current infection status in accordance with current CDC screening recommendations. Interpretive data was last revised on 2019. Blood 01/23/2024 10:3 5 AM CDT 01/23/2024 12:41 PM CDT Johanny Wu MD LAB MICROBIOLOGY - GENERAL ORDERABLES Final Result DORCAS [address] [facility] Department [place] [address] * Pap and HPV, reflex to HPV Genotypes (12/15/2022 3:33 PM CDT) Clinical indication Comment [facility] - 01 Comment: NEGATIVE FOR INTRAEPITHELIAL LESION OR MALIGNANCY. THIS SPECIMEN WAS RESCREENED PART OF OUR BUILDING COORDINATOR PROGRAM. Specimen adequacy: Comment [facility] - 01 Comment:Satisfactory for eleni luation. No endocervical component is identified. Clinician provided ICD10 Comment [facility] - 01 Comment:Z01.419 Performed by Comment [facility] - 01 Comment:Parker Guzman, Davion otechnologist ([facility]) QC reviewed by Comment [facility] - 01 Comment:Heather Nava Metal Worker (ASC) . . [facility] - 01 Note: Comment [facility] - 01 Comment: The Pap smear is a screening test designed to aid in the detection of premalignant and malignant conditions of the uterine cervix. It is not a diagnostic procedure and should not be used as the sole means of detecting cervical cancer. Both false-positive and false-negative reports do occur. Test methodology Comment [facility] - 01 Comment: This liquid based ThinPrep(R) pap test was screened with the use of an image guided system. HPV Aptima Negative Negative LAB [facility] 02 Comment: This nucleic acid amplification test detects fourteen high-risk HPV types (16,18,31,33,35,39,45,51,52,56,58,59,66,68) without differentiation. HPV Genotype Reflex Comment [facility] - 01 Comment:Criteria not met, HP V Genotype not performed. Thin prep 12/15/2022 3:33 PM CDT 12/16/2022 Narrative [facility] - 12/22/2022 3:08 PM CDT Performed at: - [address] [id number] Medical Practitioners: Jalyn Lai MD, Phone: [phone] Performed at: - [address] [id number] Medical Practitioners: Jalyn Lai MD, Phone: [phone] Specimen Comment: No. of containers..01 ThinPrep Vial Heather Quintero MD LAB CYTOLOGY ORDERA BLES Final Result [facility] - 01 LAB [facility] 02 from Last 3 Months or Most Recently Relevant to Health Maintenance Insurance [facility] [place] [address] [employer] Care Teams Manager Commercial Sales Relationship Specialty Start Date End Date Johanny Wu MD [address] [place] [address] [address] [place] [address] PCP - General Internal Medicine 09/09/18
--- OUTSIDE RECORDS SUMMARY | 2025-05-02 11:49 | XMS_ITS | Encounter Summary ---
Author Organization [facility] Address [address] [place] [address] Care Team Providers Care Dry Roaster Name Role Phone Johanny Wu MD Primary Care Provider [phone]- [phone] Encounter Details Date Type Department Care Team (Late st Contact Info) Description 04/18/2025 Results Follow-Up [facility] Primary Care at [facility] - [address] [place] [phone] Johanny Wu MD [address] [place] [address] Urinalysis reflex to microscopic and culture Urine, clean voided, TSH, CBC with auto differential, Additional followed-up results: 5 Social History Tobacco Use Types Packs/Day Years Used Date Smoking Tobacco: Never Smokeless Tobacco: Never Humiliation, Afraid, Rape, and Kick questionnair e [...] on file Legal Sex Female 1:24 AM BEHAVIORAL INTERVENTIONIST Gender Identity Female 03/16/2024 10:54 AM BEHAVIORAL INTERVENTIONIST Sexual Orientation Straight 03/16/2024 10 :54 AM BEHAVIORAL INTERVENTIONIST 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 file N ot on file Not on file documented as of this encounter Ordered Prescriptions Prescription Sig Dispense Quantity Refills Last Filled Start Date End Date rosuvastatin (CRESTOR) 10 mg tablet Take 1 tablet (10 mg total) by mouth daily 30 tablet 11 04/18/2025 04/18/2026 documented in this encounter Plan of Treatment Not on file documented as of this encounter Visit Diagnoses Not on filedocumented in this encounter Care Teams Dry Roaster Relationship Specialty Start Date End Date Johanny Wu MD [facility] [address] [place] [address] PCP - General Internal Medicine 09/09/18 documented as of this encounter
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
--- NOTE | 2025-05-02 12:48 | ECG_ITS ---
Test Date: 2025-05-02 13:50:27 Measurements Intervals [place] Rate: 72 P: 72 GA: 234 QRS: -30 QRSD: 125 T: -10 QT: 380 QTc: 419 Interpretive Statements SINUS RHYTHM WITH FIRST DEGREE AV BLOCK INTRAVENTRICULAR CONDUCTION DELAY LEFT VENTRICULAR HYPERTROPHY BORDERLINE R WAVE PROGRESSION, ANTERIOR LEADS NONSPECIFIC T-WAVE ABNORMALITY- ANTEROLAT/INF LEADS BASELINE ARTIFACT- I, II, III, AVR, AVL, AVF, V1-V6 BORDERLINE ECG No previous ECG available for comparison Electronically Signed On 05-02-2025 14:12:57 JOURNALIST by Luis Bender D.O.
[2025-05-02] MEDS: ACETAMINOPHEN 325 MG TABLET 650 MG PO (13:48)
[2025-05-02] MEDS: CYCLOBENZAPRINE HCL 10 MG TABLET PO (13:49)
[2025-05-02] MEDS: IBUPROFEN 600 MG TABLET PO (13:49)
[2025-05-02 14:05] VITALS: BP 124/86; PULSE 66; RESP 18; O2SAT 99
== END 2025-05-02 14:07 | disposition home or self-care (01) ==
PROVIDERS: Emergency Provider Emergency Medicine
DX: S69.92XA Unspecified injury of left wrist, hand and finger(s), initial encounter (principal); S89.92XA Unspecified injury of left lower leg, initial encounter; S89.91XA Unspecified injury of right lower leg, initial encounter; R07.89 Other chest pain; I44.0 Atrioventricular block, first degree; I45.9 Conduction disorder, unspecified; I51.7 Cardiomegaly; R94.31 Abnormal electrocardiogram [ECG] [EKG]; V49.9XXA Car occupant (driver) (passenger) injured in unspecified traffic accident, initial encounter
CPT/HCPCS: 70450; 71046; 73110; 73130; 73562; 93005; 99284; A9270